=== PATIENT | male | born 1940 ===

== ENCOUNTER 2016-11-02 11:09 | Day surgery (SDC) | payer MEDICAID ==
[2016-11-02] MEDS ORDERED: Lactated Ringer's 500 ML IV ONE ×2 (11:34→13:45)
[2016-11-02] MEDS ORDERED: Propofol 10 mg/ml Inj (20 ML) ONE ×3 (13:11→14:15)
[2016-11-02] MEDS ORDERED: Methylene Blue 10 mg/mL(10ml) IV ONE (13:33)
[2016-11-02 15:40] VITALS: BP 152/69; PULSE 61; RESP 13; TEMP 98.4; O2SAT 96
== END 2016-11-02 15:41 | disposition home or self-care (01) ==
LOC: H.ENDO 11:09
PROVIDERS: ATTEND Internal Medicine Gastroenterology
DX: D12.7 Benign neoplasm of rectosigmoid junction (principal); K63.5 Polyp of colon